=== PATIENT | male | born 1990 | race African-American/Black ===

== ENCOUNTER 2018-02-06 09:54 | Emergency (ER) | payer SELFPAY ==
[2018-02-06] MEDS ORDERED: NORMAL SALINE 1000 ML 1,000 ML IV PRN (10:15)
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
[2018-02-06 10:57] LABS: ALANINE AMINOTRANSFERASE 29 U/L (21-72); ALBUMIN 4.3 g/dL (3.5-5.0); ALKALINE PHOSPHATASE 50 U/L (38-126); ANION GAP 10 (5-19); ASPARTATE AMINO TRANSFERASE 24 U/L (17-59); BILIRUBIN,DIRECT 0.3 mg/dL (0.0-0.4); BILIRUBIN,TOTAL 0.9 mg/dL (0.2-1.3); BLOOD UREA NITROGEN 10 mg/dL (7-20); CALCIUM 9.8 mg/dL (8.4-10.2); CARBON DIOXIDE 30 mmol/L (22-30); CHLORIDE 104 mmol/L (98-107); CREATINE KINASE 117 U/L (55-170); GLUCOSE 90 mg/dL (75-110); POTASSIUM 4.4 mmol/L (3.6-5.0); SODIUM 144.3 mmol/L (137-145)
[2018-02-06 11:33] VITALS: BP 143/74
== END 2018-02-06 11:37 | disposition home or self-care (01) ==
LOC: ER 09:54
DX: R33.9 Retention of urine, unspecified (principal); R51 Headache; R53.1 Weakness; Z87.891 Personal history of nicotine dependence; I10 Essential (primary) hypertension
CPT/HCPCS: 99285; 96360; 36415; 82550; 80053; J7030